=== PATIENT | male | born 1965 | race Two or more races ===

== ENCOUNTER 2024-06-11 13:28 | Inpatient (IN) | payer OTHER ==
[~2024-06-11] VITALS: Ht 177.8 cm; Wt 148.5 kg
[2024-06-11 14:47] LABS: EOSINOPHILS % (AUTO) 1.6 % (1.0-6.0); HEMATOCRIT 37.4 % (41-53); HEMOGLOBIN 12.2 g/dL (13.5-17.5); LYMPHOCYTES # (AUTO) 1.9 K/uL (1.0-4.8); LYMPHOCYTES % (AUTO) 30.1 % (22.0-44.0); MEAN CORPUSCULAR HEMOGLOBIN 30.1 pg (26.0-34.0); MEAN CORPUSCULAR HGB CONC 32.7 G/dL (31.0-37.0); MEAN CORPUSCULAR VOLUME 92 fL (80-100); MONOCYTES # (AUTO) 1.1 K/uL (0.1-1.0); MONOCYTES % (AUTO) 18.6 % (2.0-9.0); NEUTROPHILS % (AUTO) 48.7 % (40.0-70.0); PLATELET COUNT (AUTO) 313 K/uL (150-450); RED BLOOD CELL COUNT(AUTO) 4.06 MIL/uL (4.50-5.90); RED CELL DISTRIBUTION WIDTH 14.3 % (11.5-14.5); WHITE BLOOD COUNT (AUTO) 6.1 K/uL (4.5-11.0)
[2024-06-11] MEDS ORDERED: 0.9% SODIUM CHLORIDE 10 ML SYRINGE IVP PRN (15:30)
[2024-06-11] MEDS: SODIUM CHLORIDE 0.9% 2,650 ML IV ONE (15:49)
[2024-06-11] MEDS: PIPERACILLIN/TAZO 3.375 GM/D5W 50 ML IV ONE (15:50)
[2024-06-11 15:56] LABS: ANION GAP 9 mmol/L (8-16); CALCIUM, TOTAL 8.7 mg/dL (8.8-10.5); CARBON DIOXIDE 31 mmol/L (22-29); CHLORIDE 100 mmol/L (98-107); CREATININE 0.94 mg/dL (0.60-1.30); GLOMERULAR FILTR. RATE CALC > 60 mL/min (>60); GLUCOSE,RANDOM 101 mg/dL (70-110); POTASSIUM 3.6 mmol/L (3.5-5.1); SODIUM SERUM 140 mmol/L (136-145); UREA NITROGEN, BLOOD 14 mg/dL (7-18)
[2024-06-11 16:06] LABS: PROTHROMBIN TIME 10.3 SEC (9.4-11.6)
[2024-06-11 16:07] LABS: ANION GAP 8 mmol/L (8-16); CALCIUM, TOTAL 8.8 mg/dL (8.8-10.5); CARBON DIOXIDE 33 mmol/L (22-29); CHLORIDE 99 mmol/L (98-107); CREATININE 0.93 mg/dL (0.60-1.30); GLOMERULAR FILTR. RATE CALC > 60 mL/min (>60); GLUCOSE,RANDOM 97 mg/dL (70-110); POTASSIUM 3.3 mmol/L (3.5-5.1); SODIUM SERUM 140 mmol/L (136-145); UREA NITROGEN, BLOOD 14 mg/dL (7-18)
[2024-06-11] MEDS: VANCOMYCIN 1GM/WATER(PEG/NADA) 200 ML IV ONE (16:10)
[2024-06-11 16:12] LABS: ALANINE AMINOTRANSFERASE 15 U/L (12-78); ALBUMIN 2.9 g/dL (3.4-5.0); ALKALINE PHOSPHATASE 100 U/L (46-116); ASPARTATE AMINOTRANSFERASE 19 U/L (15-37); BILIRUBIN,TOTAL 0.4 mg/dL (0.1-1.0); TOTAL PROTEIN, SERUM 6.9 g/dL (6.4-8.2)
[2024-06-11 16:13] LABS: B-TYPE NATRIURETIC PEPTIDE 33 pg/mL (0-100)
[2024-06-11 16:14] LABS: LACTIC ACID 0.6 mmol/L (0.4-2.0); TROPONIN I-HIGH SENSITIVITY 16 ng/L (<76)
[2024-06-11] MEDS ORDERED: TraMADol HCL 50 MG TABLET PO ONE (16:45)
[2024-06-11] MEDS: TraMADol HCL 50 MG TABLET PO ONE (16:48)
[2024-06-11 19:51] LABS: COVID AG,FIA SOURCE NASAL SWAB
[2024-06-11 20:00] LABS: APPEARANCE,URINE CLEAR (CLEAR); BILIRUBIN,URINE NEGATIVE (NEGATIVE); COLOR,URINE YELLOW (YELLOW); GLUCOSE, URINE (UA) NEGATIVE (NEGATIVE); KETONES,URINE NEGATIVE (NEGATIVE); LEUKOCYTE ESTERASE ,URINE NEGATIVE (NEGATIVE); NITRATE,URINE NEGATIVE (NEGATIVE); OCCULT BLOOD,URINE NEGATIVE (NEGATIVE); PROTEIN,URINE TRACE mg/dL (NEGATIVE); SPECIFIC GRAVITIY, URINE 1.028 (1.003-1.030); UROBILINOGEN,URINE <=1.0 mg/dL (<=1.0)
[2024-06-11 20:30] LABS: SARS-COV2 (COVID) ANTIGEN,FIA Negative (Negative)
[2024-06-11] MEDS ORDERED: ACETAMINOPHEN 325 MG TABLET PO PRN (22:00)
[2024-06-11] MEDS ORDERED: ONDANSETRON HCL 4 MG/2 ML VIAL IVP PRN (22:00)
[2024-06-11] MEDS ORDERED: MAGNESIUM HYDROXIDE SUSPENSION 30 ML UDCUP PO PRN (22:00)
[2024-06-11] MEDS ORDERED: BISACODYL 10 MG RECTAL RECTAL SUPPOSITORY PR PRN (22:00)
[2024-06-11] MEDS ORDERED: ZOLPIDEM TARTRATE 5 MG TABLET PO PRN (22:00)
[2024-06-12] MEDS: HEPARIN SODIUM,PORCINE 5,000 UNITS/ML VIAL SQ SCH (00:41)
[2024-06-12] MEDS: MORPHINE SULFATE 2 MG/ML SYRINGE IVP PRN (01:17)
[2024-06-12] MEDS: VANCOMYCIN 1GM/WATER(PEG/NADA) 200 ML IV SCH (02:20)
[2024-06-12 02:30] VITALS: BP 155/88; PULSE 92; RESP 18; TEMP 98; O2SAT 96
[2024-06-12 07:38] VITALS: BP 137/92; PULSE 87; RESP 19; TEMP 98.3; O2SAT 96
[2024-06-12 07:43] LABS: BASOPHILS % (AUTO) 0.7 % (0.0-2.0); EOSINOPHILS % (AUTO) 2.1 % (1.0-6.0); HEMATOCRIT 34.9 % (41-53); HEMOGLOBIN 11.5 g/dL (13.5-17.5); LYMPHOCYTES # (AUTO) 1.3 K/uL (1.0-4.8); LYMPHOCYTES % (AUTO) 26.5 % (22.0-44.0); MEAN CORPUSCULAR HEMOGLOBIN 30.4 pg (26.0-34.0); MEAN CORPUSCULAR VOLUME 92 fL (80-100); MONOCYTES # (AUTO) 0.8 K/uL (0.1-1.0); MONOCYTES % (AUTO) 17.2 % (2.0-9.0); NEUTROPHILS # (AUTO) 2.6 K/uL (1.8-7.7); NEUTROPHILS % (AUTO) 53.5 % (40.0-70.0); PLATELET COUNT (AUTO) 310 K/uL (150-450); RED BLOOD CELL COUNT(AUTO) 3.79 MIL/uL (4.50-5.90); RED CELL DISTRIBUTION WIDTH 14.1 % (11.5-14.5); WHITE BLOOD COUNT (AUTO) 4.8 K/uL (4.5-11.0)
[2024-06-12 07:51] LABS: ANION GAP 8 mmol/L (8-16); CALCIUM, TOTAL 8.6 mg/dL (8.8-10.5); CARBON DIOXIDE 31 mmol/L (22-29); CHLORIDE 100 mmol/L (98-107); CREATININE 0.91 mg/dL (0.60-1.30); GLOMERULAR FILTR. RATE CALC > 60 mL/min (>60); GLUCOSE,RANDOM 101 mg/dL (70-110); POTASSIUM 3.4 mmol/L (3.5-5.1); SODIUM SERUM 139 mmol/L (136-145); UREA NITROGEN, BLOOD 15 mg/dL (7-18)
[2024-06-12] MEDS: DOCUSATE SODIUM 100 MG CAPSULE PO SCH (08:17)
[2024-06-12] MEDS: PANTOPRAZOLE SODIUM 40 MG DR TABLET PO SCH (08:18)
[2024-06-12] MEDS: HYDROCODONE/ACETAMINOPHEN 5-325 MG TABLET PO PRN (08:39)
[2024-06-12] MEDS ORDERED: APIX5TAB PO (11:10)
[2024-06-12] MEDS ORDERED: BUPR1TAB45 SL (11:10)
[2024-06-12] MEDS ORDERED: ATOR20TA PO (11:10)
[2024-06-12] MEDS ORDERED: ACET-2247 PO (11:10)
[2024-06-12] MEDS ORDERED: CLON0.2T PO (11:18)
[2024-06-12] MEDS ORDERED: LIDO1ADH16 TP (11:18)
[2024-06-12] MEDS ORDERED: FURO40 PO (11:18)
[2024-06-12] MEDS ORDERED: HYDR50CA7 PO (11:18)
[2024-06-12] MEDS ORDERED: OMEP20 PO (11:18)
[2024-06-12] MEDS ORDERED: LEVAHFA IH (11:18)
[2024-06-12] MEDS ORDERED: MOME13HF11 IH (11:18)
[2024-06-12] MEDS ORDERED: POTA8TAB72 PO (11:18)
[2024-06-12] MEDS ORDERED: PARO-38 PO (11:18)
[2024-06-12] MEDS ORDERED: CARV6 PO (11:18)
[2024-06-12] MEDS ORDERED: SALS500T16 PO (11:24)
[2024-06-12] MEDS ORDERED: POTASSIUM CHLORIDE 20 MEQ ER TABLET PO PRN (11:45)
[2024-06-12] MEDS ORDERED: POTASSIUM CHL 10 MEQ/WATER 50 ML IV PRN (11:45)
[2024-06-12] MEDS ORDERED: POTA-206 PO (11:46)
[2024-06-12 16:00] VITALS: BP 147/88; PULSE 81; RESP 18; TEMP 98.1; O2SAT 96
[2024-06-12 19:45] VITALS: BP 125/94; PULSE 79; RESP 17; TEMP 98.1; O2SAT 95
[2024-06-12] MEDS: CARVEDILOL 6.25 MG TABLET PO SCH (20:28)
[2024-06-12] MEDS: APIXABAN 5 MG TABLET PO SCH (20:28)
[2024-06-12] MEDS: POTASSIUM CHLORIDE 20 MEQ ER TABLET PO SCH (20:28)
[2024-06-12] MEDS: FUROSEMIDE 40 MG TABLET PO SCH (20:28)
[2024-06-12] MEDS: BUPRENORPHINE HCL/NALOXONE HCL 2-0.5 MG SUBLINGUAL TABLET SL SCH (20:29)
[2024-06-13 05:01] VITALS: BP 145/98; PULSE 79; RESP 19; TEMP 98; O2SAT 95
[2024-06-13 07:20] LABS: ANION GAP 7 mmol/L (8-16); CALCIUM, TOTAL 8.4 mg/dL (8.8-10.5); CARBON DIOXIDE 30 mmol/L (22-29); CHLORIDE 102 mmol/L (98-107); CREATININE 0.67 mg/dL (0.60-1.30); GLOMERULAR FILTR. RATE CALC > 60 mL/min (>60); GLUCOSE,RANDOM 111 mg/dL (70-110); POTASSIUM 3.4 mmol/L (3.5-5.1); SODIUM SERUM 139 mmol/L (136-145); UREA NITROGEN, BLOOD 11 mg/dL (7-18); VANCOMYCIN,RANDOM 19.1 mcg/mL (25.0-50.0)
[2024-06-13 07:26] LABS: BASOPHILS % (AUTO) 1.5 % (0.0-2.0); EOSINOPHILS % (AUTO) 2.8 % (1.0-6.0); HEMATOCRIT 37.8 % (41-53); HEMOGLOBIN 12.4 g/dL (13.5-17.5); LYMPHOCYTES # (AUTO) 1.4 K/uL (1.0-4.8); LYMPHOCYTES % (AUTO) 28.5 % (22.0-44.0); MEAN CORPUSCULAR HEMOGLOBIN 30.2 pg (26.0-34.0); MEAN CORPUSCULAR HGB CONC 32.9 G/dL (31.0-37.0); MEAN CORPUSCULAR VOLUME 92 fL (80-100); MONOCYTES # (AUTO) 0.8 K/uL (0.1-1.0); MONOCYTES % (AUTO) 15.5 % (2.0-9.0); NEUTROPHILS # (AUTO) 2.6 K/uL (1.8-7.7); NEUTROPHILS % (AUTO) 51.7 % (40.0-70.0); PLATELET COUNT (AUTO) 321 K/uL (150-450); RED BLOOD CELL COUNT(AUTO) 4.12 MIL/uL (4.50-5.90); RED CELL DISTRIBUTION WIDTH 13.8 % (11.5-14.5)
[2024-06-13 07:35] VITALS: BP 176/77; PULSE 78; RESP 18; TEMP 98; O2SAT 96
[2024-06-13] MEDS: ATORVASTATIN CALCIUM 20 MG TABLET PO SCH (07:50)
[2024-06-13] MEDS: VANCOMYCIN 1.5 GM/WATER(PEG) 300 ML IV SCH (07:58)
[2024-06-13] MEDS: PARoxetine HCL 20 MG TABLET PO SCH (07:58)
[2024-06-13 08:57] VITALS: BP 143/85; PULSE 87; RESP 18; O2SAT 93
[2024-06-13] MEDS ORDERED: BUPRENORPHINE HCL/NALOXONE HCL 2-0.5 MG SUBLINGUAL TABLET SL SCH (09:00)
[2024-06-13] MEDS ORDERED: MISC MED-CONVERTED FROM AMBULATORY (Mometasone/Formoterol (Dulera 200 Mcg-5 Mcg Inhaler) 2 IH SCH (11:00)
[2024-06-13 15:12] VITALS: BP 162/80; PULSE 76; RESP 18; TEMP 98; O2SAT 93
[2024-06-13 19:30] VITALS: BP 137/85; PULSE 84; RESP 18; TEMP 97.5; O2SAT 94
[2024-06-14 05:35] VITALS: BP 148/88; PULSE 85; RESP 18; TEMP 97.8; O2SAT 94
[2024-06-14 07:13] LABS: BASOPHILS % (AUTO) 1.3 % (0.0-2.0); EOSINOPHILS % (AUTO) 3.3 % (1.0-6.0); HEMATOCRIT 38.3 % (41-53); HEMOGLOBIN 12.5 g/dL (13.5-17.5); LYMPHOCYTES # (AUTO) 1.5 K/uL (1.0-4.8); LYMPHOCYTES % (AUTO) 26.3 % (22.0-44.0); MEAN CORPUSCULAR HEMOGLOBIN 30.1 pg (26.0-34.0); MEAN CORPUSCULAR HGB CONC 32.7 G/dL (31.0-37.0); MEAN CORPUSCULAR VOLUME 92 fL (80-100); MONOCYTES # (AUTO) 0.8 K/uL (0.1-1.0); MONOCYTES % (AUTO) 14.2 % (2.0-9.0); NEUTROPHILS # (AUTO) 3.1 K/uL (1.8-7.7); NEUTROPHILS % (AUTO) 54.9 % (40.0-70.0); PLATELET COUNT (AUTO) 323 K/uL (150-450); RED BLOOD CELL COUNT(AUTO) 4.17 MIL/uL (4.50-5.90); WHITE BLOOD COUNT (AUTO) 5.6 K/uL (4.5-11.0)
[2024-06-14 07:29] LABS: ANION GAP 7 mmol/L (8-16); CALCIUM, TOTAL 8.8 mg/dL (8.8-10.5); CARBON DIOXIDE 31 mmol/L (22-29); CHLORIDE 103 mmol/L (98-107); CREATININE 0.71 mg/dL (0.60-1.30); GLOMERULAR FILTR. RATE CALC > 60 mL/min (>60); GLUCOSE,RANDOM 104 mg/dL (70-110); POTASSIUM 3.5 mmol/L (3.5-5.1); SODIUM SERUM 141 mmol/L (136-145); UREA NITROGEN, BLOOD 10 mg/dL (7-18)
[2024-06-14 08:00] VITALS: BP 162/78; PULSE 86; RESP 19; TEMP 97.9; O2SAT 95
[2024-06-14] MEDS ORDERED: MUPIROCIN CALCIUM 2% 22 GM OINTMENT TP SCH (11:45)
[2024-06-14] MEDS ORDERED: AMLO-257 PO (13:30)
[2024-06-14] MEDS ORDERED: AMOX-457 PO (13:30)
== END 2024-06-14 19:40 | DRG 603 ==
LOC: EMS 13:28 → EDH 06-12 00:08 → UNDOADMIN 06-12 00:08 → 6N 06-12 02:18
PROVIDERS: ADMIT Internal Medicine; ATTEND Internal Medicine
DX: L03.115 Cellulitis of right lower limb (principal); F11.20 Opioid dependence, uncomplicated; Z68.42 Body mass index [BMI] 45.0-49.9, adult; L97.919 Non-pressure chronic ulcer of unspecified part of right lower leg with unspecified severity; L97.929 Non-pressure chronic ulcer of unspecified part of left lower leg with unspecified severity; I83.009 Varicose veins of unspecified lower extremity with ulcer of unspecified site; L03.116 Cellulitis of left lower limb; Z20.822 Contact with and (suspected) exposure to COVID-19; I10 Essential (primary) hypertension; I87.2 Venous insufficiency (chronic) (peripheral); E87.6 Hypokalemia; K21.9 Gastro-esophageal reflux disease without esophagitis; D64.9 Anemia, unspecified; E66.01 Morbid (severe) obesity due to excess calories; G89.29 Other chronic pain; E78.00 Pure hypercholesterolemia, unspecified; M54.9 Dorsalgia, unspecified; Z86.718 Personal history of other venous thrombosis and embolism; Z79.01 Long term (current) use of anticoagulants; Z79.899 Other long term (current) drug therapy
CPT/HCPCS: 71045; 80048; 80053; 80202; 81003; 83605; 83880; 84145; 84484; 85025; 85610; 87040; 87070; 87075; 87186; 87205; 93005; 93925; 93970; 99285; J1644; J2270; J2543; 36415-L1; 36415-TC